=== PATIENT | male | born 1980 | race African-American/Black ===

== ENCOUNTER → 2018-05-08 | Outpatient (CLI) | payer BC, OTHER | LOC: ULTRA 12:44 | DX: K75.89 Other specified inflammatory liver diseases (principal) ==

== ENCOUNTER → 2018-06-10 | Outpatient (CLI) | payer BC, OTHER | LOC: CAT 09:34 | DX: K76.0 Fatty (change of) liver, not elsewhere classified (principal); K42.9 Umbilical hernia without obstruction or gangrene; R63.4 Abnormal weight loss ==